=== PATIENT | female | born 1945 | race Caucasian/White ===

== ENCOUNTER 2019-05-08 08:34 | Emergency (ER) | payer MEDICARE, SELFPAY ==
--- NOTE | ~2019-05-08 | CT_ITS ---
EXAMINATION: CT BRAIN W/O DATE: 05/08/2019 10:27 INDICATION: Acute headache. TECHNIQUE: Computed tomography (CT) of the head was performed without intravenous contrast. The dose- length product was 605.33 mGy-cm. The mA was adjusted according to patient size. Iterative reconstruc tion technique was employed. COMPARISON: CT dated 06/04/2018 FINDINGS: Normal brain parenchymal volume for age. Normal garner-white differentiation. No acute intrac ranial hemorrhage, infarction, mass or mass effect. No ventriculomegaly or midline shift. Midline sagittal images demonstrate a normal corpus callosum, c raniovertebral junction and sella turcica. Basilar cisterns are patent. Paranasal sinuses and mastoids are pneumatized. No depressed skull fractures. IMPRESSION: 1. No acute intracranial abnormality. Reviewed, dictated and finalized at location A. ENT TURNER
--- NOTE | ~2019-05-08 | CT_ITS ---
EXAMINATION: CT abdomen pelvis w con DATE: 05/08/2019 10:27 INDICATION: Left lower abdominal pain. TECHNIQUE: Computed tomography (CT) of the abdomen and pelvis was performed with 100 cc Omnipaque 350 intravenous contrast. The dose-length product was 331.76 mGy-cm. Automated exposure control and iter ative reconstruction technique were employed. COMPARISON: CT dated 01/18/2019 FINDINGS: Lung bases unremarkable. Heart size normal. No significant pleural or pericardial effusion. Moderate atherosclerosis without evidence for aneurysm. The liver, spleen, pancreas, adrenal glands and right kidney are unremarkable. Gallbladder is present . Nonobstructive bowel gas pattern. Status post left nephrectomy. No abnormal masses in the nephrecto my bed. No abnormal pelvic masses or fluid collections. Tiny subcentimeter hypodensity right kidney, most likely benign cysts. No free air or free fluid. Mild lumbar spondylosis. There is mild bladder w all thickening. IMPRESSION: 1. No acute abdominal abnormality. 2: Status post left nephrectomy. 3: Mild bladder wall thickening. Consider cystitis in the appropriate clinical setting. Reviewed, dictated and finalized at location A. IFIED MASTER SAFECRACKER
[2019-05-08 08:40] VITALS: BP 191/66; PULSE 88; RESP 16; TEMP 36.4; O2SAT 100
--- NOTE | 2019-05-08 08:52 | ED.HA ---
HPI - Headache General Chief Complaint: Headache Stated Complaint: Head pain Time Seen by Provider: 05/08/19 08:50 Source: patient Mode of arrival: ambulatory Limitations: no limitations History of Present Illness HPI Narrative: The pt is a 74 y/o female who presents to the ED with c/o a ESCALERA that began yesterday. The pt states that her ESCALERA is located across the top of her head. She has not taken anything for the pain, which is intermittent and lasts a couple of hours. She relates her ESCALERA to a higher BP than nml, but states that her BP at home had a systolic reading of 164. The pt notes that she is supposed to be taking medication for HTN twice a day but missed her second dose yesterday. The pt reports lt ABD pain that began this morning and is present on palpation, but denies vision changes, dysuria, nausea, vomiting, or CP. She notes that her last bowel movement was yesterday and that it was nml. The pt has a PMHx of HTN, HLD, kidney CA, and bladder CA, as well as a SHx of a lt nephrectomy s/p kidney CA. MD elicited complaint: headache Onset (ago): day(s) (yesterday) Location: other (across top of head) Quality & Timing: intermittent Associated symptoms: other (lt ABD pain) Related Data Home Medications Medication Instructions Recorded Confirmed escitalopram oxalate mg 05/08/19 ezetimibe mg 05/08/19 fluticasone propionate INTRANASAL 05/08/19 losartan 05/08/19 omeprazole 05/08/19 Allergies Allergy/AdvReac Type Severity Reaction Status Date / Time azithromycin Allergy Unknown Unknown Verified 05/08/19 08:44 codeine Allergy Unknown Unknown Verified 05/08/19 08:44 hydrocodone AdvReac Severe CONFUSION Verified 05/08/19 08:44 baclofen AdvReac Unknown CONFUSION Verified 05/08/19 08:44 lisinopril AdvReac Unknown X Verified 05/08/19 08:44 simvastatin AdvReac Unknown X Verified 05/08/19 08:44 AMLODIPINE BESYLATE AdvReac Unknown UNKNOWN TO Uncoded 08/23/18 13:23 PATIENT Review of Systems Review of Systems: All systems reviewed & are unremarkable except as noted in HPI and below Eyes: Eyes: Denies change in vision Cardiovascular: Cardiovascular: Denies chest pain Gastrointestinal: Gastrointestinal: Reports abdominal pain (lt), Denies nausea and Denies vomiting Genitourinary: Genitourinary: Denies dysuria Neurologic: Reports headache(s) PMFSH Past Medical History Medical History Arthritis Neck and spine Bladder cancer CAD (coronary artery disease) lt carotid Cancer of kidney Carpal tunnel syndrome Bilateral wrist Cataract Diverticulitis Endometriosis Esophageal stricture GERD (gastroesophageal reflux disease) Hepatitis 8 y/o Hip fracture lt History of kidney cancer lt side History of pneumonia as a child HLD (hyperlipidemia) HTN (hypertension) IBS (irritable bowel syndrome) Migraines Osteopenia Pneumonia Situational depression UTI (urinary tract infection) Surgical History Surgical History H/O oophorectomy History of adenoidectomy 5 y/o History of appendectomy History of bladder surgery 1970 History of carpal tunnel surgery Bilateral History of hysterectomy History of nephrectomy lt side History of tonsillectomy 5 y/o Family History Family History Sibling Patient's sister is in good health Patient's brother is in good health Father Cerebrovascular accident Mother Family history of congestive heart failure Other Carcinoma of colon Diabetes mellitus Family history of heart disease in male family member before age 55 Social History Social History Smoking end date: 03/16/79 Alcohol intake: never Gender identity (if verbalized by the patient): Female Exam Narrative: Exam Narrative: GENERAL: Well-appearing, well-nourished, and in no acute d
[2019-05-08 09:15] VITALS: BP 152/68; PULSE 66; RESP 18; O2SAT 100
[2019-05-08 09:34] LABS: Basophils Percent Auto 0.7 % (0.2-1.2); Eosinophils Absolute Auto 0.2 K/mm3 (0-0.3); Eosinophils Percent Auto 3.4 % (0-4.4); Hematocrit 34.9 % (37.0-47.0); Hemoglobin 10.9 g/dL (12.0-15.0); Immature Granulocyte Absolute 0.02 K/mm3 (0.00-0.031); Immature Granulocyte Percent A 0.4 % (0-0.5); Lymphocytes Absolute Auto 1.17 K/mm3 (0.9-3.2); Lymphocytes Percent Auto 20.9 % (18.3-44.2); Mean Corpuscular HGB Conc 31.2 g/dl (32-36); Mean Corpuscular Hemoglobin 30.4 pg (26-34); Mean Corpuscular Volume 97.5 fl (80-100); Mean Platelet Volume 9.8 fl (7.4-10.4); Monocytes Absolute Auto 0.6 K/mm3 (0.1-0.6); Monocytes Percent Auto 11.3 % (2.6-8.5); Neutrophils Absolute Auto 3.6 K/mm3 (1.3-6.7); Neutrophils Percent Auto 63.3 % (45.5-73.1); Platelet Count Result 262 k/mm3 (150-375); Red Blood Count 3.58 M/mm3 (4.2-5.4); Red Cell Distribution Width 13.5 % (11.5-14.5); White Blood Count 5.6 K/mm3 (4.5-10.0)
[2019-05-08 09:40] LABS: Add Urine Microscopic? YES; Appearance Urine Clear (Clear); Bilirubin Urine Negative (Negative); Blood Urine 1+ (Negative); Color Urine Straw (Yellow); Glucose Urine UA Negative (Negative); Ketones Urine Negative (Negative); Leukocyte Esterase Ur Negative LEU/UL (Negative); Mucus Urine Rare /lpf; Nitrate Urine Negative (Negative); Protein Urine Negative (Negative); Specific Grav Ur 1.013 (1.001-1.035); Urobilinogen Urine Negative mg/dL (<2.0); WBC Urine 0-3 /hpf
[2019-05-08 09:44] LABS: Alanine Aminotransferase 13 U/L (4-35); Albumin Level 4.3 g/dL (3.5-5.1); Alkaline Phosphatase 75 U/L (38-126); Aspartate Amino Transferase 24 U/L (14-36); Bilirubin,Total 0.3 mg/dL (0.2-1.3); Blood Urea Nitrogen 17 mg/dL (7-17); Calcium 8.8 mg/dL (8.4-10.2); Carbon Dioxide 27 mmol/L (22-30); Chloride 97 mmol/L (98-107); Estimated CRCL calculation 31 ml/min; Estimated Glomerular Filt Rate 48; Glucose 91 mg/dL (65-105); Lipase 74 U/L (23-300); Potassium 3.9 mmol/L (3.4-5.0); Sodium 138 mmol/L (137-145)
[2019-05-08 10:00] VITALS: BP 137/65; PULSE 58; RESP 16; O2SAT 100
[2019-05-08 11:00] VITALS: BP 136/60; PULSE 59; RESP 16; O2SAT 100
[2019-05-08 11:47] VITALS: BP 124/61; PULSE 71; RESP 16; O2SAT 98
== END 2019-05-08 11:50 | disposition home or self-care (01) ==
PROVIDERS: Emergency Provider General Practice; PCP Physician Assistant
DX: G44.209 Tension-type headache, unspecified, not intractable (principal); R10.32 Left lower quadrant pain; I10 Essential (primary) hypertension; E78.5 Hyperlipidemia, unspecified; Z90.5 Acquired absence of kidney; Z85.528 Personal history of other malignant neoplasm of kidney; Z85.51 Personal history of malignant neoplasm of bladder; I25.10 Atherosclerotic heart disease of native coronary artery without angina pectoris; K21.9 Gastro-esophageal reflux disease without esophagitis; M85.80 Other specified disorders of bone density and structure, unspecified site; Z87.440 Personal history of urinary (tract) infections
CPT/HCPCS: 36415; 70450; 74177; 80053; 81001; 83690; 85025; 96365; 99284; J0131; Q9967

== ENCOUNTER 2019-09-09 08:45 | Outpatient (CLI) | payer MEDICARE, SELFPAY ==
--- NOTE | ~2019-09-09 | MM_ITS ---
EXAMINATION: MM screening azeem BI w conor HISTORY: Screening mammogram TECHNIQUE: Craniocaudal and mediolateral oblique 3-D tomosynthesis images were obtained and synthetic 2-D images were generated. CAD analysis was submitted and interpreted. COMPARISON: 09/01/2018, 08/28/2017, 08/26/2016 and lateral digital screening mammogram examinations BREAST PARENCHYMAL COMPOSITION: The breasts are heterogeneously dense, which may obscure small masses . FINDINGS: There is no evidence of suspicious mass, calcification, or architectural distortion to sugg est malignancy in either breast. There has been no suspicious interval change. IMPRESSION: 1. No mammographic evidence of malignancy. 2. Recommend routine screening mammography in one year. BI-RADS Category 1: Negative Reviewed, dictated and finalized at location A.
== END 2019-09-09 08:46 | disposition home or self-care (01) ==
LOC: ANHIMG 08:52
PROVIDERS: PCP Physician Assistant; Visit Provider Physician Assistant
DX: Z12.31 Encounter for screening mammogram for malignant neoplasm of breast (principal)
CPT/HCPCS: 77063; 77067

== ENCOUNTER 2019-10-05 11:03 | Outpatient (CLI) | payer MEDICARE, SELFPAY ==
--- NOTE | ~2019-10-05 | DEXA_ITS ---
Bone Density Report Name: Bina Bowling Age: 74 Sex: Female Ethnicity: White Date of : 1945 Indication: osteopenia; monitoring treatment; parental hip fracture; height loss; prior fracture; cancer; poatmenopausal Referring Provider: AdamaLayla Study: Bone densitometry was performed. Exam Date: October 05, 2019 Accession number: [id number] Bone Density: Region BMD T-score Z-score Classification AP Spine (L1, L2, L3) 0.836 -1.7 0.8 Osteopenia Femoral Neck (Left) 0.584 -2.4 -0.2 Osteopenia Total Hip (Left) 0.745 -1.6 0.3 Osteopenia Total Hip Bilateral Avg 0.743 -1.7 0.3 Osteopenia Femoral Neck (Right) 0.542 -2.8 -0.6 Osteoporosis Total Hip (Right) 0.740 -1.7 0.2 Osteopenia World Health Organization criteria for BMD impression classify patients as: Normal (T-score at or above -1.0), Osteopenia (T-score between -1.0 and -2.5), or Osteoporosis (T-score at or below -2.5). 10-year Fracture Risk: FRAX not reported because: Some T-score for Spine Total or Hip Total or Femoral Neck at or below -2.5 Treated for osteoporosis Previous Exams: Region Exam Age BMD T-score BMD Change BMD Change Date g/cm2 vs Baseline vs Previous AP Spine(L1, L2, L3) 10/05/2019 74 0.836 -1.7 0.030(3.7%)# 0.015(1.9%)# 08/29/2013 68 0.821 -1.8 0.014(1.8%)# 0.018(2.2%) 05/01/2011 66 0.803 -2.0 -0.004(-0.4%)# -0.004(-0.4%)# 09/18/2009 64 0.807 -1.9 Total Hip(Left) 10/05/2019 74 0.745 -1.6 -0.046(-5.8%)# -0.035(-4.5%)# 08/29/2013 68 0.780 -1.3 -0.010(-1.3%)# 0.007(0.8%) 05/01/2011 66 0.774 -1.4 -0.017(-2.1%)# -0.017(-2.1%)# 09/18/2009 64 0.791 -1.2 Total Hip(Right) 10/05/2019 74 0.740 -1.7 -0.054(-6.8%)# -0.040(-5.1%)# 08/29/2013 68 0.780 -1.3 -0.014(-1.8%)# -0.011(-1.4%) 05/01/2011 66 0.792 -1.2 -0.003(-0.4%)# -0.003(-0.4%)# 09/18/2009 64 0.795 -1.2 *Denotes significance at 95% confidence level, LSC for AP Spine = 0.022 g/cm2, LSC for Total Hip = 0.027 g/cm2 Clinical Information Provided by Patient: Has had a low trauma fracture Parent has had a hip fracture Is being treated for osteoporosis Has used the following medications: Fosamax (i.e. alendronate), Reclast (i.e. zoledronate), Vitamin D, Calcium Has the following medical conditions: Cancer Patient maximum height was 63 Menopause Age: 58 Drinks caffeinated beverages Onset of menses at age 8 Number of children 3 Impression: The patient h
== END 2019-10-05 11:04 | disposition home or self-care (01) ==
LOC: ANHIMG 11:04
PROVIDERS: PCP Physician Assistant; Visit Provider Internal Medicine Endocrinology, Diabetes & Metabolism
DX: M85.89 Other specified disorders of bone density and structure, multiple sites (principal)
CPT/HCPCS: 77080

== ENCOUNTER 2020-02-13 09:46 | Outpatient (CLI) | payer MEDICARE, SELFPAY ==
--- NOTE | ~2020-02-13 | US_ITS ---
EXAMINATION: US soft tissue head and neck EXAM DATE: 02/13/2020 10:17 INDICATION: Enlarged lymph nodes, dysphagia. TECHNIQUE: Multiple grayscale and Doppler images of the symptomatic anterior neck area of pressure we re obtained (by a technologist who performed the scan) and subsequently reviewed. Correlation is made to thyroid ultrasound 02/23/2019. FINDINGS: Thyroid gland is unremarkable. There is no mid cervical internal jugular chain lymphadenopathy or mas s. Subcutaneous fat is unremarkable. IMPRESSION: 1. Unremarkable neck ultrasound exam. Reviewed, dictated and finalized at location A. ENSATION ADVISOR
== END 2020-02-13 09:47 | disposition home or self-care (01) ==
PROVIDERS: PCP Physician Assistant; Visit Provider Physician Assistant
DX: R59.0 Localized enlarged lymph nodes (principal)
CPT/HCPCS: 76536

== ENCOUNTER 2020-07-16 11:54 | Emergency (ER) | payer MEDICARE, SELFPAY ==
--- NOTE | ~2020-07-16 | XR_ITS ---
EXAMINATION: XR chest 1V portable EXAM DATE: 07/16/2020 12:51 INDICATION: Altered mental status, shooting pain across head, confusion. TECHNIQUE: Portable AP frontal chest x-ray was obtained. Comparison is made to prior examination from 03/31/19. FINDINGS: The lungs are hyperinflated which can be seen with chronic obstructive pulmonary disease (a clinical diagnosis of functional impairment), but is not diagnostic of it. The lungs are clear. T here are no pleural effusions. The cardiomediastinal silhouette is within normal limits. There is n o pneumothorax suspected. The bones and soft tissues are unremarkable. IMPRESSION: 1. No acute cardiopulmonary findings. 2. Hyperinflation. Reviewed, dictated and finalized at location B.
--- NOTE | 2020-07-16 11:56 | ECG_ITS ---
Measurements Intervals [place] Rate: 72 P: 55 WI: 153 QRS: 50 QRSD: 82 T: 72 QT: 366 QTc: 402 Interpretive Statements SINUS RHYTHM DELAYED PRECORDIAL R/S TRANSITION BORDERLINE ECG Electronically Signed On 07-16-2020 14:32:34 CDT by Villa Lee D.O.
[2020-07-16 12:03] VITALS: BP 145/68; PULSE 75; RESP 20; TEMP 37.1; O2SAT 99
[2020-07-16 12:29] LABS: Basophils Percent Auto 0.4 % (0.2-1.2); Eosinophils Absolute Auto 0.2 K/mm3 (0-0.3); Hematocrit 32.8 % (37.0-47.0); Hemoglobin 10.6 g/dL (12.0-15.0); Immature Granulocyte Absolute 0.02 K/mm3 (0.00-0.031); Immature Granulocyte Percent A 0.3 % (0-0.5); Lymphocytes Absolute Auto 1.63 K/mm3 (0.9-3.2); Lymphocytes Percent Auto 24.2 % (18.3-44.2); Mean Corpuscular HGB Conc 32.3 g/dl (32-36); Mean Corpuscular Hemoglobin 31.5 pg (26-34); Mean Corpuscular Volume 97.3 fl (80-100); Mean Platelet Volume 9.3 fl (7.4-10.4); Monocytes Absolute Auto 0.9 K/mm3 (0.1-0.6); Monocytes Percent Auto 13.4 % (2.6-8.5); Neutrophils Percent Auto 58.7 % (45.5-73.1); Platelet Count Result 257 k/mm3 (150-375); Red Blood Count 3.37 M/mm3 (4.2-5.4); Red Cell Distribution Width 12.9 % (11.5-14.5); White Blood Count 6.7 K/mm3 (4.5-10.0)
[2020-07-16 12:31] LABS: Add Urine Microscopic? NO; Appearance Urine Clear (Clear); Bilirubin Urine Negative (Negative); Blood Urine Negative (Negative); Color Urine Colorless (Yellow); Glucose Urine UA Negative (Negative); Ketones Urine Negative (Negative); Leukocyte Esterase Ur Negative LEU/UL (Negative); Nitrate Urine Negative (Negative); Protein Urine Negative (Negative); Specific Grav Ur 1.006 (1.001-1.035); Urobilinogen Urine Negative mg/dL (<2.0)
[2020-07-16 12:40] LABS: Anion Gap 4 mmol/L (8-16); Blood Urea Nitrogen 25 mg/dL (7-17); Carbon Dioxide 31 mmol/L (22-30); Chloride 98 mmol/L (98-107); Estimated CRCL calculation 29 ml/min; Estimated Glomerular Filt Rate 48; Glucose 112 mg/dL (65-105); Potassium 4.1 mmol/L (3.4-5.0); Sodium 133 mmol/L (137-145)
[2020-07-16 12:41] LABS: Prothrombin Time 13.3 Seconds (11.1-14.7)
[2020-07-16 12:42] LABS: Partial Thromboplastin Time 28.1 SECONDS (22.3-36.8)
[2020-07-16 12:49] VITALS: BP 130/64; PULSE 79; RESP 20; O2SAT 98
[2020-07-16] MEDS: ACETAMINOPHEN 500 MG TABLET 1000 MG PO (12:49)
[2020-07-16 12:52] LABS: Troponin I < 0.012 ng/mL (0.000-0.034)
--- NOTE | 2020-07-16 13:51 | ED.GENADULT ---
HPI - General Adult General Chief complaint: Neuro Symptoms/Deficit Stated complaint: headache, neck, right leg pain, bad memory Time Seen by Provider: 07/16/20 11:57 History of Present Illness HPI narrative: Patient is a 75-year-old female who presents ER with multiple complaints. Main concern is that she was riding on some cards and cannot remember her daughter's last name and had to look it up. She denies any slurred speech or focal weakness/numbness. No additional episodes of confusion other than the one. She reports she has been having some mild headache related to this and has had some paraspinal muscular neck pain that is worse with turning her head. No fevers or chills or sweats. No trauma. No history of CVA but she does report that she has atherosclerosis in her blood vessels. Patient also reports an episode of brief achiness in the right lower extremity that has since resolved. Related Data Home Medications Medication Instructions Recorded Confirmed escitalopram oxalate 10 mg PO DAILY 05/08/19 07/16/20 ezetimibe 10 mg PO DAILY 05/08/19 07/16/20 losartan 50 mg PO HS 05/08/19 07/16/20 aspirin [Aspir-81] 81 mg PO DAILY 07/16/20 07/16/20 Allergies Allergy/AdvReac Type Severity Reaction Status Date / Time azithromycin Allergy Unknown Unknown Verified 07/16/20 12:07 codeine Allergy Unknown Unknown Verified 07/16/20 12:07 hydrocodone AdvReac Severe CONFUSION Verified 07/16/20 12:07 baclofen AdvReac Unknown CONFUSION Verified 07/16/20 12:07 lisinopril AdvReac Unknown X Verified 07/16/20 12:07 simvastatin AdvReac Unknown X Verified 07/16/20 12:07 AMLODIPINE BESYLATE AdvReac Unknown UNKNOWN TO Uncoded 07/16/20 12:07 PATIENT Review of Systems Review of Systems: All systems reviewed & are unremarkable except as noted in HPI and below Constitutional: Constitutional: Denies chills, Denies fever(s) and Denies weakness ENT: Denies nasal congestion and Denies sore throat Cardiovascular: Cardiovascular: Denies chest pain and Denies radiating jaw, neck or arm pain Respiratory: Respiratory: Denies cough and Denies dyspnea Gastrointestinal: Gastrointestinal: Denies abdominal pain, Denies nausea and Denies vomiting Musculoskeletal: Musculoskeletal: Reports muscle cramps Neurologic: Reports confusion, Denies syncope, Reports headache(s), Denies focal weakness and Denies numbness PMFSH Past Medical History Medical History (Updated 07/16/20 @ 16:19 by Aj Olmstead MD) Arthritis Neck and spine Bladder cancer CAD (coronary artery disease) lt carotid Cancer of kidney Carpal tunnel syndrome Bilateral wrist Cataract Diverticulitis Endometriosis Esophageal stricture GERD (gastroesophageal reflux disease) Hepatitis 8 y/o Hip fracture lt History of kidney cancer lt side History of pneumonia as a child HLD (hyperlipidemia) HTN (hypertension) IBS (irritable bowel syndrome) Migraines Osteopenia Pneumonia Situational depression UTI (urinary tract infection) Surgical History Surgical History H/O oophorectomy History of adenoidectomy 5 y/o History of appendectomy History of bladder surgery 1970 History of carpal tunnel surgery Bilateral History of hysterectomy History of nephrectomy lt side History of tonsillectomy 5 y/o Family History Family History Sibling Patient's sister is in good health Patient's brother is in good health Father Cerebrovascular accident Mother Family history of congestive heart failure Other Carcinoma of colon Diabetes mellitus Family history of heart disease in male family member before age 55 Social History Social History Smoking end date: 03/16/79 Alcohol intake: never Gender identity (if verbalized by the patient): Female Exam Narrative: Exam Narrative: GENERAL: Well-a
[2020-07-16] MEDS: SODIUM CHLORIDE 0.9% IV 1,000 ML 999 ML IV CONT (14:51)
[2020-07-16 16:19] VITALS: BP 137/67; PULSE 68; RESP 16; TEMP 36.6; O2SAT 100
== END 2020-07-16 16:23 | disposition home or self-care (01) ==
PROVIDERS: Emergency Provider Emergency Medicine; PCP Physician Assistant
DX: M54.2 Cervicalgia (principal); E86.0 Dehydration; R41.0 Disorientation, unspecified; M19.90 Unspecified osteoarthritis, unspecified site; Z85.51 Personal history of malignant neoplasm of bladder; I25.10 Atherosclerotic heart disease of native coronary artery without angina pectoris; Z85.528 Personal history of other malignant neoplasm of kidney; H26.9 Unspecified cataract; K21.9 Gastro-esophageal reflux disease without esophagitis; E78.5 Hyperlipidemia, unspecified; I10 Essential (primary) hypertension; M85.80 Other specified disorders of bone density and structure, unspecified site; I70.90 Unspecified atherosclerosis; M79.604 Pain in right leg; Z87.440 Personal history of urinary (tract) infections; Z79.82 Long term (current) use of aspirin; R94.31 Abnormal electrocardiogram [ECG] [EKG]
CPT/HCPCS: 36415; 71045; 80048; 81003; 84484; 85025; 85610; 85730; 93005; 96360; 99284; A9270; J7030

== ENCOUNTER 2020-08-16 18:13 | Emergency (ER) | payer MEDICARE, SELFPAY ==
--- NOTE | ~2020-08-16 | CT_ITS ---
EXAMINATION: CT brain wo con DATE: 08/16/2020 22:17 INDICATION: Headache. Left temporal area pain radiating to neck TECHNIQUE: Computed tomography (CT) of the head was performed without intravenous contrast. The mA wa s adjusted according to patient size. Iterative reconstruction technique was employed. Exam dose: 60 5.33 mGy-cm total exam DLP. COMPARISON: May 08, 2019 CT noncontrast brain FINDINGS: No intracranial mass lesion or hemorrhage or cerebrovascular accident. No midline shift or mass effect effect. There is cerebral cortical volume loss preferentially involving the frontal and temporal lobes. Bilateral carotid siphon internal carotid artery calcifications. There is nonspecific diminished atte nuation cerebral white matter, likely due to chronic small vessel ischemic changes. No subdural or epidural hematoma. No fracture or bone destruction of the cranial vault. IMPRESSION: No acute intracranial finding Cerebral atherosclerosis and chronic small vessel ischemic changes of the cerebral white matter Reviewed, dictated and finalized at Location A. Reviewed, dictated and finalized at location A. IMPRESSION: No acute intracranial finding Cerebral atherosclerosis and chronic small vessel ischemic changes of the cereb ral white matter
[2020-08-16 18:49] VITALS: BP 168/83; PULSE 73; RESP 20; TEMP 36.2; O2SAT 98
[2020-08-16 21:02] VITALS: BP 180/82; PULSE 69; RESP 16; O2SAT 100
--- NOTE | 2020-08-16 21:40 | PC.NURSE ---
Pt presents to ED with complaints of headache that has been persistent for the past 2 days. Pt states pain noted to bilateral neck and radiates up to left side of head. Pt states pain is rated 3/10 and denies treating pain captain assistant. Pt states she takes losartan for BP and has not taken meds due to being present in ED. Denies any injury or trauma. States she picked up a small bottle of laundry detergent and states that is the only thing she can think of that may have caused her to have pain. Pt resting on cart in its lowest position with call button and personal items within reach. Advised to press call button for assistance.
[2020-08-16] MEDS: CYCLOBENZAPRINE HCL 10 MG TABLET PO (22:28)
--- NOTE | 2020-08-16 22:30 | PC.NURSE ---
Pt resting on cart in its lowest position with call button and personal items within reach. No complaints or concerns voiced. Lights dimmed for comfort.
[2020-08-16] MEDS: KETOROLAC 30 MG/ML VIAL (*BKC) 15 MG IV PUSH (22:31)
[2020-08-16] MEDS: diphenhydrAMINE HCl INJ 50 MG/ML VIAL 25 MG IV PUSH (22:33)
[2020-08-16] MEDS: METOCLOPRAMIDE HCL INJ 10 MG/2 ML VIAL IV PUSH (22:33)
--- NOTE | 2020-08-16 22:38 | ED.GENADULT ---
HPI - General Adult General Chief complaint: Headache Stated complaint: High Blood Pressure, Head Pain Time Seen by Provider: 08/16/20 21:55 History of Present Illness HPI narrative: Patient 75-year-old female that presents the emergency department with chief complaint of headache and neck pain. The patient states she lifted a bottle of laundry detergent and subsequently has had pain in the left side of her neck and also has had pain in the left temporal area. Patient states the pain is aching reports that is not improved by anything reports that it is worsened whenever she moves denies any weakness in her arms or legs denies focal neurological deficit. Related Data Home Medications Medication Instructions Recorded Confirmed escitalopram oxalate 10 mg PO DAILY 05/08/19 07/16/20 ezetimibe 10 mg PO DAILY 05/08/19 07/16/20 losartan 50 mg PO HS 05/08/19 07/16/20 aspirin [Aspir-81] 81 mg PO DAILY 07/16/20 07/16/20 Allergies Allergy/AdvReac Type Severity Reaction Status Date / Time azithromycin Allergy Unknown Unknown Verified 07/16/20 12:07 codeine Allergy Unknown Unknown Verified 07/16/20 12:07 hydrocodone AdvReac Severe CONFUSION Verified 07/16/20 12:07 baclofen AdvReac Unknown CONFUSION Verified 07/16/20 12:07 lisinopril AdvReac Unknown X Verified 07/16/20 12:07 simvastatin AdvReac Unknown X Verified 07/16/20 12:07 AMLODIPINE BESYLATE AdvReac Unknown UNKNOWN TO Uncoded 07/16/20 12:07 PATIENT Review of Systems Review of Systems: Narrative: A 10 system review of systems was completed on the patient and is negative except for what is stated in the HPI. Nursing and ancillary documentation was reviewed. [facility] Past Medical History Medical History (Updated 08/16/20 @ 23:49 by Vinod Dumont MD) Arthritis Neck and spine Bladder cancer CAD (coronary artery disease) lt carotid Cancer of kidney Carpal tunnel syndrome Bilateral wrist Cataract Diverticulitis Endometriosis Esophageal stricture GERD (gastroesophageal reflux disease) Hepatitis 8 y/o Hip fracture lt History of kidney cancer lt side History of pneumonia as a child HLD (hyperlipidemia) HTN (hypertension) IBS (irritable bowel syndrome) Migraines Osteopenia Pneumonia Situational depression UTI (urinary tract infection) Surgical History Surgical History H/O oophorectomy History of adenoidectomy 5 y/o History of appendectomy History of bladder surgery 1970 History of carpal tunnel surgery Bilateral History of hysterectomy History of nephrectomy lt side History of tonsillectomy 5 y/o Family History Family History Sibling Patient's sister is in good health Patient's brother is in good health Father Cerebrovascular accident Mother Family history of congestive heart failure Other Carcinoma of colon Diabetes mellitus Family history of heart disease in male family member before age 55 Social History Social History Smoking end date: 03/16/79 Alcohol intake: never Gender identity (if verbalized by the patient): Female Exam Narrative: Exam Narrative: GENERAL: Well-appearing, well-nourished, and in no acute distress. HEAD: Normocephalic, atraumatic. EYES: PERRLA and EOMI. ENT: Nares clear, no rhinorrhea or epistaxis. Mucous membranes moist. NECK: Supple. There is tenderness to palpation in the left paraspinous muscle CHEST: Clear to auscultation. No respiratory distress. HEART: Regular rate and rhythm. No murmur heard. Normal peripheral pulses. ABDOMEN: Soft, nontender, nondistended, normal active bowel sounds. EXTREMITIES: Normal range of motion. No edema. SKIN: Warm, dry, no rash. NEURO: No focal deficits. Alert and oriented x3. PSYCH: Normal mood and affect. Course Course Emergency Course: Patient is feeling
[2020-08-16 22:40] LABS: Basophils Absolute Auto 0.1 K/mm3 (0.0-0.1); Basophils Percent Auto 0.8 % (0.2-1.2); Eosinophils Absolute Auto 0.3 K/mm3 (0-0.3); Eosinophils Percent Auto 3.5 % (0-4.4); Hematocrit 34.7 % (37.0-47.0); Hemoglobin 11.2 g/dL (12.0-15.0); Immature Granulocyte Absolute 0.02 K/mm3 (0.00-0.031); Immature Granulocyte Percent A 0.3 % (0-0.5); Lymphocytes Absolute Auto 2.36 K/mm3 (0.9-3.2); Lymphocytes Percent Auto 30.8 % (18.3-44.2); Mean Corpuscular HGB Conc 32.3 g/dl (32-36); Mean Corpuscular Hemoglobin 31.4 pg (26-34); Mean Corpuscular Volume 97.2 fl (80-100); Mean Platelet Volume 9.1 fl (7.4-10.4); Monocytes Percent Auto 13.5 % (2.6-8.5); Neutrophils Absolute Auto 3.9 K/mm3 (1.3-6.7); Neutrophils Percent Auto 51.1 % (45.5-73.1); Platelet Count Result 277 k/mm3 (150-375); Red Blood Count 3.57 M/mm3 (4.2-5.4); Red Cell Distribution Width 12.9 % (11.5-14.5); White Blood Count 7.7 K/mm3 (4.5-10.0)
[2020-08-16 22:43] LABS: Add Urine Microscopic? NO; Appearance Urine Clear (Clear); Bilirubin Urine Negative (Negative); Blood Urine Negative (Negative); Color Urine Colorless (Yellow); Glucose Urine UA Negative (Negative); Ketones Urine Negative (Negative); Leukocyte Esterase Ur Negative LEU/UL (Negative); Nitrate Urine Negative (Negative); Protein Urine Negative (Negative); Specific Grav Ur 1.006 (1.001-1.035); Urobilinogen Urine Negative mg/dL (<2.0)
[2020-08-16 22:52] LABS: Alanine Aminotransferase 13 U/L (4-35); Albumin Level 4.3 g/dL (3.5-5.1); Alkaline Phosphatase 72 U/L (38-126); Anion Gap 10 mmol/L (8-16); Aspartate Amino Transferase 25 U/L (14-36); Bilirubin,Total 0.2 mg/dL (0.2-1.3); Blood Urea Nitrogen 21 mg/dL (7-17); Calcium 9.7 mg/dL (8.4-10.2); Carbon Dioxide 26 mmol/L (22-30); Chloride 102 mmol/L (98-107); Estimated CRCL calculation 29 ml/min; Estimated Glomerular Filt Rate 48; Glucose 97 mg/dL (65-105); Potassium 4.6 mmol/L (3.4-5.0); Sodium 138 mmol/L (137-145)
--- NOTE | 2020-08-16 23:13 | PC.NURSE ---
pt resting on cart and denies all pain and discomfort. States headache has completely subsided.
[2020-08-16 23:39] VITALS: BP 118/75; PULSE 62; RESP 19; O2SAT 96
[2020-08-17 00:22] VITALS: BP 130/61; PULSE 82; RESP 18; O2SAT 99
[2020-08-17 00:24] VITALS: BP 130/61; PULSE 82; RESP 18; O2SAT 99
== END 2020-08-17 00:25 | disposition home or self-care (01) ==
PROVIDERS: Emergency Provider Emergency Medicine; PCP Physician Assistant
DX: R51.9 Headache, unspecified (principal); I25.10 Atherosclerotic heart disease of native coronary artery without angina pectoris; E78.5 Hyperlipidemia, unspecified; I10 Essential (primary) hypertension; M85.80 Other specified disorders of bone density and structure, unspecified site; K21.9 Gastro-esophageal reflux disease without esophagitis; Z85.528 Personal history of other malignant neoplasm of kidney; Z85.51 Personal history of malignant neoplasm of bladder; Z87.440 Personal history of urinary (tract) infections; Z79.82 Long term (current) use of aspirin; F43.21 Adjustment disorder with depressed mood; Z90.5 Acquired absence of kidney
CPT/HCPCS: 36415; 70450; 80053; 81003; 85025; 96374; 96375; 99284; A9270; J1200; J1885; J2765

== ENCOUNTER 2020-09-17 10:30 | Emergency (ER) | payer MEDICARE, SELFPAY ==
--- NOTE | ~2020-09-17 | CT_ITS ---
EXAMINATION: CT abdomen pelvis w con INDICATION: Right lower quadrant pain TECHNIQUE: Computed tomographic images of the abdomen and pelvis were obtained after the administrati on of 100 cc of Omnipaque 350 intravenous contrast. The dose-length product (DLP) was 241.95 mGy-cm. Automated exposure control and iterative reconstruction technique were employed. COMPARISON: 05/08/2019 FINDINGS: Minimal dependent atelectasis is present in the lung bases. The heart size is normal. There is focal steatosis. The liver adjacent to the ligamentum teres. The spleen, pancreas, gallbladder, a nd right adrenal gland are normal. There are changes of left adrenalectomy and nephrectomy. The right kidney is unremarkable. There is calcified atherosclerosis of the aorta and many of the other arteri es. No pathologically enlarged abdominal or pelvic lymph nodes are identified. There is no free intra peritoneal gas or evidence of bowel obstruction. A moderate volume of colonic stool is present. The a ppendix is not definitely identified however no right lower quadrant inflammatory change is seen. The re is moderate lumbar spondylosis. IMPRESSION: 1. No CT correlate for the patient's symptoms. 2. Changes of left nephrectomy. 3. Constipation. Reviewed, dictated and finalized at location A.
[2020-09-17 10:43] VITALS: BP 189/84; PULSE 90; RESP 16; TEMP 36.7; O2SAT 100
[2020-09-17 11:07] LABS: Basophils Percent Auto 0.5 % (0.2-1.2); Eosinophils Absolute Auto 0.2 K/mm3 (0-0.3); Eosinophils Percent Auto 2.3 % (0-4.4); Hematocrit 35.2 % (37.0-47.0); Hemoglobin 11.3 g/dL (12.0-15.0); Immature Granulocyte Absolute 0.02 K/mm3 (0.00-0.031); Immature Granulocyte Percent A 0.3 % (0-0.5); Lymphocytes Absolute Auto 1.83 K/mm3 (0.9-3.2); Lymphocytes Percent Auto 23.6 % (18.3-44.2); Mean Corpuscular HGB Conc 32.1 g/dl (32-36); Mean Corpuscular Hemoglobin 30.8 pg (26-34); Mean Corpuscular Volume 95.9 fl (80-100); Mean Platelet Volume 9.2 fl (7.4-10.4); Monocytes Absolute Auto 0.9 K/mm3 (0.1-0.6); Monocytes Percent Auto 11.8 % (2.6-8.5); Neutrophils Absolute Auto 4.8 K/mm3 (1.3-6.7); Neutrophils Percent Auto 61.5 % (45.5-73.1); Platelet Count Result 284 k/mm3 (150-375); Red Blood Count 3.67 M/mm3 (4.2-5.4); White Blood Count 7.7 K/mm3 (4.5-10.0)
[2020-09-17 11:09] LABS: Add Urine Microscopic? NO; Appearance Urine Clear (Clear); Bilirubin Urine Negative (Negative); Blood Urine Negative (Negative); Color Urine Straw (Yellow); Glucose Urine UA Negative (Negative); Ketones Urine Negative (Negative); Leukocyte Esterase Ur Negative LEU/UL (Negative); Nitrate Urine Negative (Negative); Protein Urine Negative (Negative); Specific Grav Ur 1.006 (1.001-1.035); Urobilinogen Urine Negative mg/dL (<2.0)
[2020-09-17 11:15] LABS: Alanine Aminotransferase 15 U/L (4-35); Albumin Level 4.5 g/dL (3.5-5.1); Alkaline Phosphatase 80 U/L (38-126); Anion Gap 6 mmol/L (8-16); Aspartate Amino Transferase 35 U/L (14-36); Bilirubin,Total 0.4 mg/dL (0.2-1.3); Blood Urea Nitrogen 21 mg/dL (7-17); Calcium 9.7 mg/dL (8.4-10.2); Carbon Dioxide 29 mmol/L (22-30); Chloride 102 mmol/L (98-107); Estimated CRCL calculation 29 ml/min; Estimated Glomerular Filt Rate 48; Glucose 97 mg/dL (65-105); Lipase 91 U/L (23-300); Potassium 4.1 mmol/L (3.4-5.0); Sodium 137 mmol/L (137-145)
--- NOTE | 2020-09-17 12:45 | ED.GENADULT ---
HPI - General Adult General Chief complaint: Abdominal Pain Stated complaint: R Side Pain/Breast swelling Time Seen by Provider: 09/17/20 11:11 Source: patient History of Present Illness HPI narrative: Patient is a 75 y/o female complaining right lower abdominal pain for 1 month. She describes her pain as sharp and rates it as 4/10. There is no alleviating or exacerbating factor. She has no vomiting, diarrhea or dysuria. She saw Dr. Hung (Sustainable Systems Analyst) last week and US of pelvis was done and was reportedly negative per patient. She also has been having breast swelling for 3 months and has been evaluated by Dr. Hung. She states that she was referred back to PCP and possibly surgeon for her abdominal pain. Related Data Home Medications Medication Instructions Recorded Confirmed escitalopram oxalate 10 mg PO DAILY 05/08/19 07/16/20 ezetimibe 10 mg PO DAILY 05/08/19 07/16/20 losartan 50 mg PO HS 05/08/19 07/16/20 aspirin [Aspir-81] 81 mg PO DAILY 07/16/20 07/16/20 Allergies Allergy/AdvReac Type Severity Reaction Status Date / Time azithromycin Allergy Unknown Unknown Verified 09/17/20 10:47 codeine Allergy Unknown Unknown Verified 09/17/20 10:47 hydrocodone AdvReac Severe CONFUSION Verified 09/17/20 10:47 baclofen AdvReac Unknown CONFUSION Verified 09/17/20 10:47 lisinopril AdvReac Unknown X Verified 09/17/20 10:47 simvastatin AdvReac Unknown X Verified 09/17/20 10:47 AMLODIPINE BESYLATE AdvReac Unknown UNKNOWN TO Uncoded 07/16/20 12:07 PATIENT Review of Systems Constitutional: Constitutional: Denies chills, Denies fever(s), Denies headache(s) and Denies weakness Eyes: Eyes: Denies blurry vision ENT: Denies headache(s) and Denies neck pain Cardiovascular: Cardiovascular: Denies chest pain and Denies dyspnea Respiratory: Respiratory: Denies cough and Denies dyspnea Gastrointestinal: Gastrointestinal: Reports abdominal pain, Denies diarrhea, Denies nausea and Denies vomiting Genitourinary: Genitourinary: Denies hematuria and Denies dysuria Musculoskeletal: Musculoskeletal: Denies back pain and Denies neck pain Integumentary/Breasts: Skin/Breast: Reports other ( breast swelling ) Neurologic: Denies headache(s) and Denies weakness [facility] Past Medical History Medical History (Updated 09/17/20 @ 13:33 by Greta Burr MD) Arthritis Neck and spine Bladder cancer CAD (coronary artery disease) lt carotid Cancer of kidney Carpal tunnel syndrome Bilateral wrist Cataract Diverticulitis Endometriosis Esophageal stricture GERD (gastroesophageal reflux disease) Hepatitis 8 y/o Hip fracture lt History of kidney cancer lt side History of pneumonia as a child HLD (hyperlipidemia) HTN (hypertension) IBS (irritable bowel syndrome) Migraines Osteopenia Pneumonia Situational depression UTI (urinary tract infection) Surgical History Surgical History H/O oophorectomy History of adenoidectomy 5 y/o History of appendectomy History of bladder surgery 1970 History of carpal tunnel surgery Bilateral History of hysterectomy History of nephrectomy lt side History of tonsillectomy 5 y/o Family History Family History Sibling Patient's sister is in good health Patient's brother is in good health Father Cerebrovascular accident Mother Family history of congestive heart failure Other Carcinoma of colon Diabetes mellitus Family history of heart disease in male family member before age 55 Social History Social History Smoking end date: 03/16/79 Alcohol intake: never Gender identity (if verbalized by the patient): Female Exam Const: General: no acute distress and well developed Orientation/consciousness: oriented to person, oriented to place, oriented to time and patient oriented x3 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
== END 2020-09-17 13:55 | disposition home or self-care (01) ==
PROVIDERS: Emergency Medicine; Emergency Provider Emergency Medicine; PCP Physician Assistant
DX: R10.30 Lower abdominal pain, unspecified (principal); G89.29 Other chronic pain; N63.0 Unspecified lump in unspecified breast; I10 Essential (primary) hypertension; I25.10 Atherosclerotic heart disease of native coronary artery without angina pectoris; Z79.82 Long term (current) use of aspirin; Z85.528 Personal history of other malignant neoplasm of kidney
CPT/HCPCS: 36415; 74177; 80053; 81003; 83690; 85025; 99284; Q9967

== ENCOUNTER → 2020-11-03 01:37 | Outpatient (CLI) | payer MEDICARE, SELFPAY ==
[2020-11-04 01:36] LABS: SARS-CoV-2 RNA PCR Negative
== END ==
PROVIDERS: PCP Physician Assistant; Visit Provider Internal Medicine Gastroenterology
DX: Z01.812 Encounter for preprocedural laboratory examination (principal); Z20.822 Contact with and (suspected) exposure to COVID-19
CPT/HCPCS: C9803; U0003; U0005

== ENCOUNTER 2020-11-06 02:00 | Day surgery (SDC) | payer MEDICARE, SELFPAY ==
[2020-10-30 08:39] VITALS: BMI 23.3
--- NOTE | 2020-11-05 13:27 | WPDANESEPPF ---
Anes - Initial Pre Proc Eval Procedure: Operation Date: 11/06/20 11:00 Proposed Procedures p Colonoscopy - Chris Osborne MD Date/Time: 11/05/20 13:27 Surgeon: Chris Osborne MD Pre Op Diagnosis: change in bowel habits, constipation Patient Data Age: 75 Gender: F Height: 1.55 m Weight: 56 kg Allergies Allergy/AdvReac Type Severity Reaction Status Date / Time azithromycin Allergy Unknown Unknown Verified 11/06/20 10:09 codeine Allergy Unknown Unknown Verified 11/06/20 10:09 hydrocodone AdvReac Severe CONFUSION Verified 11/06/20 10:09 amlodipine AdvReac Unknown Unknown to Verified 11/06/20 10:09 patient baclofen AdvReac Unknown CONFUSION Verified 11/06/20 10:09 lisinopril AdvReac Unknown X Verified 11/06/20 10:09 simvastatin AdvReac Unknown X Verified 11/06/20 10:09 Home Medications Medication Instructions Recorded Confirmed Type escitalopram oxalate [Lexapro] 10 mg PO DAILY 05/08/19 11/06/20 History ezetimibe [Zetia] 10 mg PO DAILY 05/08/19 11/06/20 History losartan 50 mg PO HS 05/08/19 11/06/20 History aspirin [Aspir-81] 81 mg PO DAILY 07/16/20 11/06/20 History Patient hx anesthesia problems: none Family hx anesthesia problems: none PMFSH Past Medical History Medical History (Updated 11/06/20 @ 10:40 by Chris Osborne MD) Arthritis Neck and spine Bladder cancer CAD (coronary artery disease) lt carotid Cancer of kidney Carpal tunnel syndrome Bilateral wrist Cataract Constipation Diverticulitis Endometriosis Esophageal stricture GERD (gastroesophageal reflux disease) Hepatitis 8 y/o Hip fracture lt History of kidney cancer lt side History of pneumonia as a child HLD (hyperlipidemia) HTN (hypertension) IBS (irritable bowel syndrome) Migraines Osteopenia Pneumonia Situational depression UTI (urinary tract infection) Surgical History Surgical History H/O oophorectomy History of adenoidectomy 5 y/o History of appendectomy History of bladder surgery 1970 History of carpal tunnel surgery Bilateral History of hysterectomy History of nephrectomy lt side History of tonsillectomy 5 y/o Family History Family History Sibling Patient's sister is in good health Patient's brother is in good health Father Cerebrovascular accident Mother Family history of congestive heart failure Other Carcinoma of colon Diabetes mellitus Family history of heart disease in male family member before age 55 Social History Social History Smoking packs per day: 1 Smoking cigarettes per day: 20.0 Smoking status: Former smoker Tobacco type: cigarettes Smoking end date: 03/16/79 Alcohol intake: never 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al care concerns: No Anes - Eval Final PreProcedure Day of Procedure 11/05/20 13:27 Patient weight: normal Heart: regular rate and rhythm Lungs: clear to auscultation and normal air movement Airway: Mallampati scale class III Neurological: alert and oriented Last oral intake: >/= 8 hours ASA classification: III Emergent: no Anesthetic plan: proceed Anesthesia type and monitoring: general GIVS and standard monitoring Informed Consent: The patient's anesthetic plan and its attendant risks and benefits were discussed with the patient/family/POA. Questions were solicited and answers provided to the satisfaction of the patient/family/POA.
[2020-11-06 10:11] VITALS: BP 148/65; PULSE 69; RESP 14; TEMP 36.3; O2SAT 100
[2020-11-06] MEDS: LACTATED RINGERS 1,000 ML 150 ML IV CONT (10:25)
--- NOTE | 2020-11-06 10:37 | WPDGICN ---
Assessment and Plan Assessment and plan (1) Right sided abdominal pain: Code(s): R10.9 - Unspecified abdominal pain Status: Acute Assessment and Plan: Right-sided abdominal pain. Appears to be right lower quadrant. Cannot exclude incisional hernia. Plan is for colonoscopy. If this is not fruitful been surgical evaluation may need to be consider. Patient should try fiber type stool softeners in the interim. (2) Constipation: Code(s): K59.00 - Constipation, unspecified Status: Acute Assessment and Plan: Patient's constipation is improved. Would recommend continuing fiber supplementation. (3) GERD (gastroesophageal reflux disease): Code(s): K21.9 - Gastro-esophageal reflux disease without esophagitis Status: Acute Assessment and Plan: Patient with history of GE reflux currently appears stable. She has a history of esophageal stricture ring in the past not clinically evident at the present time. (4) Family history of colonic polyps: Code(s): Z83.71 - Family history of colonic polyps Status: Acute Assessment and Plan: Patient's sister has had colon polyps. A grandparent had colon cancer. Surveillance colonoscopy recommended at this time. GI Consult Note Consult date/time: 11/06/20 10:37 HPI: Bina Bowling is a 75 year old female Presents because of ongoing abdominal pain. Over the last 3-6 months has had right lower quadrant abdominal discomfort. Is very poorly described. Sometimes sharp. Sometimes burning. She states she sometimes feels a protrusion in this area. She does have a past medical history of renal cell carcinoma status post resection. Several years ago had an EGD for esophageal stricture. Most recent colonoscopy 2017. She is referred for colonoscopy because of her pain but also because of irregular bowel movements. Family history is significant her sister had a colon polyp grandmother had colon cancer. Patient previously had constipation but her bowel habits are much more regular now. Review of Systems Review of Systems: All systems reviewed & are unremarkable except as noted in HPI and below PMFSH Past Medical History Medical History (Updated 11/06/20 @ 10:40 by Chris Osborne MD) Arthritis Neck and spine Bladder cancer CAD (coronary artery disease) lt carotid Cancer of kidney Carpal tunnel syndrome Bilateral wrist Cataract Constipation Diverticulitis Endometriosis Esophageal stricture GERD (gastroesophageal reflux disease) Hepatitis 8 y/o Hip fracture lt History of kidney cancer lt side History of pneumonia as a child HLD (hyperlipidemia) HTN (hypertension) IBS (irritable bowel syndrome) Migraines Osteopenia Pneumonia Situational depression UTI (urinary tract infection) Surgical History Surgical History H/O oophorectomy History of adenoidectomy 5 y/o History of appendectomy History of bladder surgery 1970 History of carpal tunnel surgery Bilateral History of hysterectomy History of nephrectomy lt side History of tonsillectomy 5 y/o Family History Family History Sibling Patient's sister is in good health Patient's brother is in good health Father Cerebrovascular accident Mother Family history of congestive heart failure Other Carcinoma of colon Diabetes mellitus Family history of heart disease in male family member before age 55 Social History Social History Smoking packs per day: 1 Smoking cigarettes per day: 20.0 Smoking status: Former smoker Tobacco type: cigarettes Smoking end date: 03/16/79 Alcohol intake: never 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
[2020-11-06 11:45] VITALS: BP 85/48; PULSE 67; RESP 26; O2SAT 98
[2020-11-06 11:55] VITALS: BP 107/58; PULSE 74; RESP 22; O2SAT 98
[2020-11-06 12:05] VITALS: BP 143/73; PULSE 64; RESP 17; O2SAT 100
== END 2020-11-06 12:24 | disposition home or self-care (01) ==
PROVIDERS: PCP Physician Assistant; Visit Provider Internal Medicine Gastroenterology
PROC: 0DJD8ZZ Inspection of Lower Intestinal Tract, Via Natural or Artificial Opening Endoscopic (ICD-10-PCS; CPT 45378; principal; 2020-11-06 11:00)
DX: Z12.11 Encounter for screening for malignant neoplasm of colon (principal); Z83.71 Family history of colonic polyps; R10.31 Right lower quadrant pain; K64.8 Other hemorrhoids; K58.9 Irritable bowel syndrome, unspecified; K57.30 Diverticulosis of large intestine without perforation or abscess without bleeding; R10.9 Unspecified abdominal pain; K59.00 Constipation, unspecified; K21.9 Gastro-esophageal reflux disease without esophagitis; M47.812 Spondylosis without myelopathy or radiculopathy, cervical region; I25.10 Atherosclerotic heart disease of native coronary artery without angina pectoris; G56.03 Carpal tunnel syndrome, bilateral upper limbs; N80.9 Endometriosis, unspecified; E78.5 Hyperlipidemia, unspecified; I10 Essential (primary) hypertension; Z87.891 Personal history of nicotine dependence
CPT/HCPCS: G0105; J2001; J2704; J7120

== ENCOUNTER 2020-12-07 12:04 | Outpatient (CLI) | payer MEDICARE, SELFPAY ==
--- NOTE | ~2020-12-07 | MMUS_ITS ---
EXAMINATION: MM diagnostic azeem BI w conor, US breast BI complete HISTORY: Bilateral breast fullness. Mastodynia. TECHNIQUE: ML, MLO and craniocaudal 3-D tomosynthesis images of both breasts were performed and synth etic 2-D images were generated. CAD analysis was submitted and interpreted. High resolution breast ul trasound was performed. COMPARISON: 09/09/2019, 09/01/2018, 08/28/2017 bilateral digital screening mammogram examinations BREAST PARENCHYMAL COMPOSITION: The breasts are heterogeneously dense, which may obscure small masses . FINDINGS: MAMMOGRAPHIC FINDINGS: No suspicious mass or architectural distortion, malignant calcification, skin thickening or retractio n or significant new or developing density is detected. ULTRASOUND: There is no evidence of focal abnormal solid or cystic lesion or suspicious shadowing of either breas t. IMPRESSION: 1. No mammographic evidence of malignancy 2. Routine mammographic screening is recommended. BI-RADS Category 1: Negative Reviewed, dictated and finalized at location A. IMPRESSION: 1. No mammographic evidence of malignancy 2. Routine mammographic screening is recommended. BI-RADS Category 1: Negative
--- NOTE | ~2020-12-07 | CT_ITS ---
EXAMINATION: CT abdomen pelvis w con EXAM DATE: 12/07/2020 13:47 INDICATION: Right lower quadrant pain. Pelvic pain. Kidney and bladder cancer. TECHNIQUE: Spiral CT of the abdomen and pelvis was performed following intravenous injection of 100 m L Omnipaque 350. Axial, coronal and sagittal images of the abdomen and pelvis were reviewed. The do se-length product (DLP) for this examination was 230.11 mGy-cm. The exposure was tailored according to patient size (auto mA exposure control), and iterative reconstruction (ASIR) was used as additiona l dose reduction technique. Comparison is made to prior examination from 09/17/2020. FINDINGS: The liver, spleen, adrenal glands and pancreas are unremarkable. Gallbladder is unremarkab le. No biliary obstruction. Status post left-sided nephrectomy. No right-sided hydronephrosis. The uterus is anteverted and morphologically normal. The bladder is collapsed at time of imaging limit ing evaluation. There is no retroperitoneal or pelvic lymphadenopathy. There is moderate scattered arteriosclerotic disease. Tiny umbilical fat-containing hernia. There are no findings to suggest appendicitis. The stomach and small bowel are unremarkable. There is moderate amount of colonic stool. There is mild scattered colonic diverticulosis. There is no adj acent inflammatory change to suggest diverticulitis. No free intraperitoneal gas. The heart is nor mal in size. There are no pericardial or pleural effusions. The lung bases are unremarkable. There are no osteoblastic or osteolytic lesions identified. IMPRESSION: 1. Moderate colonic stool. 2. Left nephrectomy. No evidence metastatic disease. 3. Mild colonic diverticulosis. Reviewed, dictated and finalized at location B.
[2020-12-07 13:43] LABS: Estimated Glomerular Filt Rate 44
== END 2020-12-07 12:05 | disposition home or self-care (01) ==
PROVIDERS: PCP Physician Assistant; Visit Provider Physician Assistant
DX: N64.4 Mastodynia (principal); Z90.5 Acquired absence of kidney; K57.90 Diverticulosis of intestine, part unspecified, without perforation or abscess without bleeding
CPT/HCPCS: 74177; 76641; 77062; 77066; G0279; Q9967

== ENCOUNTER 2021-03-29 09:34 | Emergency (ER) | payer MEDICARE, SELFPAY ==
--- NOTE | ~2021-03-29 | CT_ITS ---
EXAMINATION: CTA chest PE protocol DATE: 03/29/2021 14:29 INDICATION: Palpitations. Elevated d-dimer. TECHNIQUE: Computed tomography (CT) pulmonary angiogram of the chest was performed with 100 mL Omnipa que-350 intravenous contrast. Additional 3D reconstructions utilizing coronal maximum intensity proje ction (MIP) were performed. Automated exposure control and iterative reconstruction technique were em ployed. The dose-length product was 166.07 mGy-cm. COMPARISON: None FINDINGS: Poor contrast opacification of the pulmonary arteries with the peak of the contrast bolus having pass ed through the pulmonary vasculature into the aorta. There is minimal streak artifact and only mild m otion artifact at the lung bases. Sensitivity is on the decrease in the segmental pulmonary arteries and assessment is essentially nondiagnostic in the more distal subsegmental pulmonary arteries due to primarily to the poor contrast opacification. No evident pulmonary embolism. Small region of consoli dation in the posterior segment of the left upper lobe abutting the major fissure suspicious for pneu monia. Mild biapical pleural-parenchymal scarring. Mild dependent atelectasis in the bilateral lower lobes. Multiple scattered bilateral small calcified pulmonary nodules along with calcified right amarilis r lymph nodes consistent with old granulomatous disease. Heart size is normal. No pericardial effusio n. Atherosclerotic coronary artery calcification. Thoracic aorta is normal in caliber with no dissect ion. No pathologically enlarged thoracic lymphadenopathy. Status post left nephrectomy. Mild thoracic spondylosis. IMPRESSION: 1. No evident pulmonary embolism. Sensitivity decreased in the segmental pulmonary arteries and essen tially nondiagnostic in the more peripheral subsegmental pulmonary arteries due to to suboptimal flaquita ng of the contrast bolus. 2. Focal small region of airspace disease at the posterior segment of the left upper lobe suspicious for pneumonia. Reviewed, dictated and finalized at location A. SLITTER IMPRESSION: 1. No evident pulmonary embolism. Sensitivity decreased in the segmental pulmon darin arteries and essentially nondiagnostic in the more peripheral subsegmental pulmonary arteries due to to suboptimal timing of the contrast bolus. 2. Focal small region of airspace disease at the posterior segment of the left upper lobe suspicious for pneumonia.
--- NOTE | ~2021-03-29 | XR_ITS ---
EXAMINATION: XR chest 2V DATE: 03/29/2021 09:56 INDICATION: Heart racing TECHNIQUE: frontal and lateral views of the chest were obtained. COMPARISON: Chest radiograph dated 07/16/2020 FINDINGS: Several small calcified nodules scattered throughout both lungs consistent with old granulomatous dis ease. No other airspace opacities, pulmonary edema, pleural effusion or pneumothorax. The cardiomedia stinal silhouette is normal. Moderate bilateral acromioclavicular osteoarthritis. Bones are otherwise unremarkable. IMPRESSION: 1. No acute cardiopulmonary disease. Reviewed, dictated and finalized at location A. MICS TEST ENGINEER
[2021-03-29 09:33] VITALS: BP 118/64; PULSE 90; RESP 19; TEMP 36.4; O2SAT 96
--- NOTE | 2021-03-29 09:38 | ECG_ITS ---
Measurements Intervals Jelm Rate: 82 P: 62 OK: 155 QRS: 12 QRSD: 74 T: 74 QT: 356 QTc: 417 Interpretive Statements SINUS RHYTHM BASELINE ARTIFACT- I, II, III, AVR, AVL, AVF, V4-V6 NORMAL ECG Electronically Signed On 03-29-2021 12:45:44 AUTOMATIC PINSETTER MECHANIC by Villa Lee D.O.
--- NOTE | 2021-03-29 09:51 | ED.ARRPALP ---
HPI - Arrhythmia/Palpitations General Chief Complaint: Arrhythmia/Palpitations Stated Complaint: Rapid HR Time Seen by Provider: 03/29/21 09:50 Source: patient Mode of arrival: EMS Limitations: no limitations History of Present Illness HPI narrative: Patient is a 76-year-old female complaining of palpitations that started this morning but now resolved. Patient states that her palpitations is worse when she stands up and ambulates. Patient states that she tested positive for COVID in March 16, 2021. Patient denies any chest pain, shortness of breath,,abdominal pain, nausea, vomiting, diaphoresis, fever or chills. Patient denies any history of A. fib or atrial flutter. Related Data Home Medications Medication Instructions Recorded Confirmed escitalopram oxalate [Lexapro] 10 mg PO DAILY 05/08/19 11/06/20 ezetimibe [Zetia] 10 mg PO DAILY 05/08/19 11/06/20 losartan 50 mg PO HS 05/08/19 11/06/20 aspirin [Aspir-81] 81 mg PO DAILY 07/16/20 03/29/21 Allergies Allergy/AdvReac Type Severity Reaction Status Date / Time azithromycin Allergy Unknown Unknown Verified 03/29/21 09:40 codeine Allergy Unknown Unknown Verified 03/29/21 09:40 hydrocodone AdvReac Severe CONFUSION Verified 03/29/21 09:40 amlodipine AdvReac Unknown Unknown to Verified 03/29/21 09:40 patient baclofen AdvReac Unknown CONFUSION Verified 03/29/21 09:40 lisinopril AdvReac Unknown X Verified 03/29/21 09:40 simvastatin AdvReac Unknown X Verified 03/29/21 09:40 Review of Systems Review of Systems: All systems reviewed & are unremarkable except as noted in HPI and below Constitutional: Constitutional: Denies body ache(s), Denies chills, Denies excessive sweating, Denies fatigue, Denies fever(s), Denies headache(s), Denies lethargy, Denies malaise, Denies weakness and Denies weight loss Eyes: Eyes: Denies blurry vision, Denies change in vision and Denies loss of vision ENT: Denies dizziness, Denies ear discharge, Denies headache(s), Denies lip swelling, Denies epistaxis, Denies nasal congestion, Denies neck pain, Denies throat swelling and Denies tongue swelling Cardiovascular: Cardiovascular: Denies chest pain, Denies chest pain at rest, Denies chest pain with activity, Denies diaphoresis, Denies rapid heart rate, Denies edema, Denies irregular heart rhythm and Denies lightheadedness Respiratory: Respiratory: Denies chest congestion, Denies cough and Denies hemoptysis Gastrointestinal: Gastrointestinal: Denies abdominal pain, Denies melena, Denies hematochezia, Denies diarrhea, Denies nausea, Denies vomiting and Denies hematemesis Musculoskeletal: Musculoskeletal: Denies abnormal gait, Denies deformity, Denies joint swelling, Denies limited range of motion, Denies neck pain and Denies numbness Neurologic: Denies Abnormal speech present, Denies abnormal gait, Denies confusion, Denies dizziness, Denies headache(s), Denies focal weakness, Denies loss of vision, Denies numbness, Denies Other visual disturbances, Denies Sensory deficit (Neuro) and Denies weakness Psychiatric: Psychiatric: Denies confusion, Denies depression, Denies auditory hallucinations, Denies homicidal ideation and Denies suicidal ideation Endocrine: Endocrine: Denies cold intolerance, Denies excessive sweating, Denies fatigue, Denies heat intolerance and Denies palpitations Hematologic/Lymphatic: Hematologic/Lymphatic: Denies easy bleeding and Denies easy bruising Allergic/Immunologic: Allergic/Immunologic: Denies lip swelling, Denies throat swelling and Denies tongue swelling PMFSH Past Medical History Medical History Arthritis Neck and spine Bladder cancer CAD (coronary artery disease) lt carotid Cancer of kidney Carpal tunnel syndrome Bilateral wrist Cataract Constipation Diverticulitis Endometriosis Esophageal stricture GERD (gastroesophageal reflux disease) Hepatitis 8 y/o Hip fracture lt History of kidney cancer lt side
[2021-03-29 10:02] LABS: Basophils Percent Auto 0.2 % (0.2-1.2); Eosinophils Percent Auto 0.6 % (0-4.4); Hematocrit 32.1 % (37.0-47.0); Hemoglobin 10.6 g/dL (12.0-15.0); Immature Granulocyte Absolute 0.02 K/mm3 (0.00-0.031); Immature Granulocyte Percent A 0.4 % (0-0.5); Lymphocytes Absolute Auto 1.07 K/mm3 (0.9-3.2); Lymphocytes Percent Auto 22.4 % (18.3-44.2); Mean Corpuscular Hemoglobin 31.5 pg (26-34); Mean Corpuscular Volume 95.3 fl (80-100); Mean Platelet Volume 9.4 fl (7.4-10.4); Monocytes Absolute Auto 0.6 K/mm3 (0.1-0.6); Monocytes Percent Auto 13.4 % (2.6-8.5); Platelet Count Result 259 k/mm3 (150-375); Red Blood Count 3.37 M/mm3 (4.2-5.4); Red Cell Distribution Width 13.2 % (11.5-14.5); White Blood Count 4.8 K/mm3 (4.5-10.0)
[2021-03-29 10:14] LABS: Prothrombin Time 12.9 Seconds (11.1-14.7)
[2021-03-29 10:16] LABS: Alanine Aminotransferase 16 U/L (4-35); Albumin Level 4.2 g/dL (3.5-5.1); Alkaline Phosphatase 95 U/L (38-126); Anion Gap 11 mmol/L (8-16); Aspartate Amino Transferase 29 U/L (14-36); Bilirubin,Total 0.4 mg/dL (0.2-1.3); Blood Urea Nitrogen 15 mg/dL (7-17); Calcium 8.9 mg/dL (8.4-10.2); Carbon Dioxide 26 mmol/L (22-30); Chloride 97 mmol/L (98-107); Estimated CRCL calculation 30 ml/min; Estimated Glomerular Filt Rate 48; Glucose 144 mg/dL (65-110); Lipase 113 U/L (23-300); Sodium 134 mmol/L (137-145)
[2021-03-29 10:21] VITALS: BP 118/52; PULSE 87; RESP 15; O2SAT 99
[2021-03-29 10:27] LABS: Troponin I < 0.012 ng/mL (0.000-0.034)
[2021-03-29] MEDS: LACTATED RINGERS 1,000 ML 999 ML IV CONT (10:54)
[2021-03-29 11:03] LABS: D Dimer 0.73 ug/mL (<0.48)
[2021-03-29 13:36] LABS: Troponin I < 0.012 ng/mL (0.000-0.034)
[2021-03-29] MEDS: LACTATED RINGERS 1,000 ML 500 ML IV CONT (15:19)
[2021-03-29 15:40] VITALS: BP 113/63; PULSE 70; RESP 18; TEMP 36.9; O2SAT 99
== END 2021-03-29 15:40 | disposition home or self-care (01) ==
PROVIDERS: Emergency Provider Emergency Medicine; PCP Physician Assistant
DX: U07.1 COVID-19 (principal); J12.82 Pneumonia due to coronavirus disease 2019; R00.2 Palpitations; I25.10 Atherosclerotic heart disease of native coronary artery without angina pectoris; K21.9 Gastro-esophageal reflux disease without esophagitis; E78.5 Hyperlipidemia, unspecified; I10 Essential (primary) hypertension; K58.9 Irritable bowel syndrome, unspecified; M85.80 Other specified disorders of bone density and structure, unspecified site; Z85.51 Personal history of malignant neoplasm of bladder; Z85.528 Personal history of other malignant neoplasm of kidney; Z86.19 Personal history of other infectious and parasitic diseases; Z87.440 Personal history of urinary (tract) infections; M47.812 Spondylosis without myelopathy or radiculopathy, cervical region; Z90.5 Acquired absence of kidney; Z87.891 Personal history of nicotine dependence
CPT/HCPCS: 36415; 71046; 71275; 80053; 83690; 84484; 85025; 85380; 85610; 85730; 93005; 96360; 96361; 99284; J7120; Q9967

== ENCOUNTER 2021-07-27 20:23 | Emergency (ER) | payer MEDICARE, SELFPAY ==
--- NOTE | ~2021-07-27 | XR_ITS ---
XR chest 2V DATE: 07/27/2021 22:26 INDICATION: Productive cough. Midsternal chest pain for 2 weeks. TECHNIQUE: PA and lateral views COMPARISON: 03/29/2021 CT pulmonary scan 03/29/2021 2 view chest FINDINGS: Normal heart size. Aortic calcification and mild unfolding. No hilar or mediastinal enlarge ment. Bilateral hyperinflation with relative flattening of the diaphragm. No pulmonary infiltrate or consol idation, pleural effusion or pulmonary vascular congestion or pneumothorax. There is dextroscoliosis of the thoracolumbar spine. There is osteopenia. IMPRESSION: Bilateral hyperinflation, consistent with obstructive airways disease No active cardiopulmonary disease Aortic calcification Reviewed, dictated and finalized at location A. IMPRESSION: Bilateral hyperinflation, consistent with obstructive airways disea se No active cardiopulmonary disease Aortic calcification
[2021-07-27 20:44] VITALS: BP 125/60; PULSE 84; RESP 18; TEMP 36.7; O2SAT 99
[2021-07-27 23:48] LABS: Basophils Percent Auto 0.3 % (0.2-1.2); Eosinophils Absolute Auto 0.3 K/mm3 (0-0.3); Eosinophils Percent Auto 4.2 % (0-4.4); Hematocrit 27.3 % (37.0-47.0); Hemoglobin 8.7 g/dL (12.0-15.0); Immature Granulocyte Absolute 0.03 K/mm3 (0.00-0.031); Immature Granulocyte Percent A 0.4 % (0-0.5); Lymphocytes Absolute Auto 1.76 K/mm3 (0.9-3.2); Lymphocytes Percent Auto 23.2 % (18.3-44.2); Mean Corpuscular HGB Conc 31.9 g/dl (32-36); Mean Corpuscular Hemoglobin 30.4 pg (26-34); Mean Corpuscular Volume 95.5 fl (80-100); Mean Platelet Volume 9.4 fl (7.4-10.4); Monocytes Absolute Auto 1.1 K/mm3 (0.1-0.6); Neutrophils Absolute Auto 4.3 K/mm3 (1.3-6.7); Neutrophils Percent Auto 56.9 % (45.5-73.1); Platelet Count Result 230 k/mm3 (150-375); Red Blood Count 2.86 M/mm3 (4.2-5.4); Red Cell Distribution Width 13.9 % (11.5-14.5); White Blood Count 7.6 K/mm3 (4.5-10.0)
[2021-07-27 23:49] LABS: Appearance Urine Clear (Clear); Bilirubin Urine Negative (Negative); Color Urine Yellow (Yellow); Glucose Urine UA Negative (Negative); Ketones Urine Negative (Negative); Leukocyte Esterase Ur Trace LEU/UL (Negative); Nitrate Urine Negative (Negative); Protein Urine Negative (Negative); Urobilinogen Urine 0.2 mg/dL (<2.0)
[2021-07-27 23:50] LABS: Add Urine Microscopic? YES; Blood Urine Trace (Negative)
[2021-07-27 23:59] LABS: Alanine Aminotransferase 17 U/L (6-35); Albumin Level 3.9 g/dL (3.5-5.1); Alkaline Phosphatase 74 U/L (38-126); Anion Gap 6 mmol/L (8-16); Aspartate Amino Transferase 30 U/L (14-36); Bilirubin,Total 0.5 mg/dL (0.2-1.3); Blood Urea Nitrogen 16 mg/dL (7-17); Calcium 8.5 mg/dL (8.4-10.2); Carbon Dioxide 26 mmol/L (22-30); Chloride 98 mmol/L (98-107); Estimated CRCL calculation 32 ml/min; Estimated Glomerular Filt Rate 54; Glucose 91 mg/dL (65-110); Potassium 3.9 mmol/L (3.4-5.0); Sodium 130 mmol/L (137-145)
[2021-07-28 00:04] LABS: Mucus Urine Rare /lpf; RBC Urine 0-2 /hpf (0-2); Squamous Epithelial Cell Urine Rare /hpf (Few)
[2021-07-28 00:11] VITALS: PULSE 76; RESP 18; O2SAT 98
[2021-07-28] MEDS: ALBUTEROL SULFATE NEB 2.5 MG/3 ML INH INHALATION (00:38)
[2021-07-28 00:40] VITALS: PULSE 91; RESP 20
[2021-07-28 00:46] VITALS: PULSE 89; RESP 20
[2021-07-28] MEDS: BENZONATATE 100 MG CAPSULE 200 MG PO (01:38)
[2021-07-28 01:45] VITALS: O2SAT 98
--- NOTE | 2021-07-28 02:38 | ED.URI ---
HPI - URI/Sore Throat General Chief Complaint: Upper Respiratory Infection Stated Complaint: cough, congestion Time Seen by Provider: 07/27/21 22:33 Source: patient Mode of arrival: ambulatory History of Present Illness HPI Narrative: 76-year-old female presents today with complaints of cough that has been going on for over a week. Patient states primary told her to come to the ER for x-ray and lab work. Patient seen at urgent care last Thursday for cough. They did a chest x-ray showed nothing significant. Patient states at that time she was running a fever but only intervention was chest x-ray. Patient currently afebrile, heart rate 84, BP 125/60, temp 36.7 ?C and oxygen level 99% on room air. Related Data Home Medications Medication Instructions Recorded Confirmed escitalopram oxalate [Lexapro] 10 mg PO DAILY 05/08/19 11/06/20 ezetimibe [Zetia] 10 mg PO DAILY 05/08/19 11/06/20 losartan 50 mg PO HS 05/08/19 11/06/20 aspirin [Aspir-81] 81 mg PO DAILY 07/16/20 03/29/21 Allergies Allergy/AdvReac Type Severity Reaction Status Date / Time azithromycin Allergy Unknown Unknown Verified 03/29/21 09:40 codeine Allergy Unknown Unknown Verified 03/29/21 09:40 hydrocodone AdvReac Severe CONFUSION Verified 03/29/21 09:40 amlodipine AdvReac Unknown Unknown to Verified 03/29/21 09:40 patient baclofen AdvReac Unknown CONFUSION Verified 03/29/21 09:40 lisinopril AdvReac Unknown X Verified 03/29/21 09:40 simvastatin AdvReac Unknown X Verified 03/29/21 09:40 Review of Systems Review of Systems: CONSTITUTIONAL: Denies fever, chills, or sweats. EYES: Denies visual changes, redness, or discharge. ENT: Denies rhinorrhea, congestion, sore throat, or otalgia. CARDIOVASCULAR: Denies chest pain, palpitations, or edema. RESPIRATORY: Cough. Denies or dyspnea. GASTROINTESTINAL: Denies abdominal pain, nausea, vomiting, or diarrhea. GENITOURINARY: Denies dysuria or hematuria. SKIN: Denies rash or itching. MUSCULOSKELETAL: Denies back pain, joint pain, or myalgia. NEUROLOGIC: Denies headache, numbness, dizziness, or weakness. PSYCHIATRIC: Denies anxiety or depression. FOR[facility], LATER [facility] Past Medical History Medical History Arthritis Neck and spine Bladder cancer CAD (coronary artery disease) lt carotid Cancer of kidney Carpal tunnel syndrome Bilateral wrist Cataract Constipation Diverticulitis Endometriosis Esophageal stricture GERD (gastroesophageal reflux disease) Hepatitis 8 y/o Hip fracture lt History of kidney cancer lt side History of pneumonia as a child HLD (hyperlipidemia) HTN (hypertension) IBS (irritable bowel syndrome) Migraines Osteopenia Pneumonia Situational depression UTI (urinary tract infection) Surgical History Surgical History H/O oophorectomy History of adenoidectomy 5 y/o History of appendectomy History of bladder surgery 1970 History of carpal tunnel surgery Bilateral History of hysterectomy History of nephrectomy lt side History of tonsillectomy 5 y/o Family History Family History Sibling Patient's sister is in good health Patient's brother is in good health Father Cerebrovascular accident Mother Family history of congestive heart failure Other Carcinoma of colon Diabetes mellitus Family history of heart disease in male family member before age 55 Social History Social History Smoking packs per day: 1 Smoking cigarettes per day: 20.0 Smoking status: Former smoker Tobacco type: cigarettes Smoking end date: 03/16/79 Alcohol intake: never 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
== END 2021-07-28 01:45 | disposition home or self-care (01) ==
PROVIDERS: Emergency Provider Nurse Practitioner Family; PCP Physician Assistant
DX: R05.9 Cough, unspecified (principal); I25.10 Atherosclerotic heart disease of native coronary artery without angina pectoris; E78.5 Hyperlipidemia, unspecified; I10 Essential (primary) hypertension; K21.9 Gastro-esophageal reflux disease without esophagitis; K58.9 Irritable bowel syndrome, unspecified; M85.80 Other specified disorders of bone density and structure, unspecified site; M47.812 Spondylosis without myelopathy or radiculopathy, cervical region; Z85.528 Personal history of other malignant neoplasm of kidney; Z85.51 Personal history of malignant neoplasm of bladder; Z87.01 Personal history of pneumonia (recurrent); Z87.440 Personal history of urinary (tract) infections; Z90.5 Acquired absence of kidney; Z87.891 Personal history of nicotine dependence; R91.8 Other nonspecific abnormal finding of lung field
CPT/HCPCS: 36415; 71046; 80053; 81001; 85025; 94640; 99283; A9270

== ENCOUNTER 2021-08-05 20:28 | Emergency (ER) | payer MEDICARE, SELFPAY ==
--- NOTE | ~2021-08-05 | XR_ITS ---
EXAMINATION: XR chest 2V Exam Date/Time: 08/05/2021 21:00 CDT HISTORY: COUGH Comparison: 03/29/2001. RESULT: Lines, tubes, and devices: None. Lungs and pleura: Senescent and possibly emphysematous changes, biapical pleural scarring, otherwise clear. Cardiomediastinal silhouette: Stable cardiomediastinal silhouette. Other: No acute osseous or upper abdominal finding. IMPRESSION: No acute cardiopulmonary process. Reviewed, dictated and finalized at location K.
[2021-08-05 20:40] VITALS: BP 160/66; PULSE 87; RESP 16; TEMP 36.6; O2SAT 100
[2021-08-05 20:58] VITALS: O2SAT 100
[2021-08-05 21:00] VITALS: BP 154/54; PULSE 79; RESP 18; O2SAT 100
--- NOTE | 2021-08-05 21:26 | ED.URI ---
HPI - URI/Sore Throat General Chief Complaint: Upper Respiratory Infection Stated Complaint: cough Time Seen by Provider: 08/05/21 20:57 Source: patient Mode of arrival: ambulatory Limitations: no limitations History of Present Illness HPI Narrative: Patient is a 76-year-old female complaining of cough, productive, white-yellowish sputum, started 2 weeks ago. Patient also states that she has no energy and feels weak for the past week. Patient states that she saw her PCP last week for the cough was given antibiotics. Patient called her PCP today and since she is not better after the antibiotics was advised to go to the emergency room. Patient denies any chest pain, shortness of breath, abdominal pain, nausea, vomiting, fever or chills. Related Data Home Medications Medication Instructions Recorded Confirmed escitalopram oxalate [Lexapro] 10 mg PO DAILY 05/08/19 11/06/20 ezetimibe [Zetia] 10 mg PO DAILY 05/08/19 11/06/20 losartan 50 mg PO HS 05/08/19 11/06/20 aspirin [Aspir-81] 81 mg PO DAILY 07/16/20 03/29/21 Allergies Allergy/AdvReac Type Severity Reaction Status Date / Time azithromycin Allergy Unknown Unknown Verified 08/05/21 20:43 codeine Allergy Unknown Unknown Verified 08/05/21 20:43 hydrocodone AdvReac Severe CONFUSION Verified 08/05/21 20:43 amlodipine AdvReac Unknown Unknown to Verified 08/05/21 20:43 patient baclofen AdvReac Unknown CONFUSION Verified 08/05/21 20:43 lisinopril AdvReac Unknown X Verified 08/05/21 20:43 simvastatin AdvReac Unknown X Verified 08/05/21 20:43 Review of Systems Review of Systems: All systems reviewed & are unremarkable except as noted in HPI and below Constitutional: Constitutional: Denies body ache(s), Denies chills, Denies excessive sweating, Denies fatigue, Denies fever(s), Denies headache(s), Denies lethargy, Denies malaise, Denies weakness and Denies weight loss Eyes: Eyes: Denies blurry vision, Denies change in vision and Denies loss of vision ENT: Denies dizziness, Denies ear discharge, Denies headache(s), Denies lip swelling, Denies epistaxis, Denies nasal congestion, Denies neck pain, Denies throat swelling and Denies tongue swelling Cardiovascular: Cardiovascular: Denies chest pain, Denies chest pain at rest, Denies chest pain with activity, Denies diaphoresis, Denies rapid heart rate, Denies edema, Denies irregular heart rhythm, Denies lightheadedness, Denies palpitations, Denies dyspnea and Denies dyspnea on exertion Respiratory: Respiratory: Denies chest congestion, Denies hemoptysis, Denies dyspnea and Denies dyspnea on exertion Gastrointestinal: Gastrointestinal: Denies abdominal pain, Denies melena, Denies hematochezia, Denies diarrhea, Denies nausea, Denies vomiting and Denies hematemesis Musculoskeletal: Musculoskeletal: Denies abnormal gait, Denies deformity, Denies joint swelling, Denies limited range of motion, Denies neck pain and Denies numbness Neurologic: Denies Abnormal speech present, Denies abnormal gait, Denies confusion, Denies dizziness, Denies headache(s), Denies focal weakness, Denies loss of vision, Denies numbness, Denies Other visual disturbances, Denies Sensory deficit (Neuro) and Denies weakness Psychiatric: Psychiatric: Denies confusion, Denies depression, Denies auditory hallucinations, Denies homicidal ideation and Denies suicidal ideation Endocrine: Endocrine: Denies cold intolerance, Denies excessive sweating, Denies fatigue, Denies heat intolerance and Denies palpitations Hematologic/Lymphatic: Hematologic/Lymphatic: Denies easy bleeding and Denies easy bruising Allergic/Immunologic: Allergic/Immunologic: Denies lip swelling, Denies throat swelling and Denies tongue swelling PMFSH Past Medical History Medical History Arthritis Neck and spine Bladder cancer CAD (coronary artery disease) lt carotid Cancer of kidney Carpal tunnel syndrome Bilateral wrist Cataract Constipation
[2021-08-05 21:27] LABS: Basophils Percent Auto 0.3 % (0.2-1.2); Eosinophils Absolute Auto 0.3 K/mm3 (0-0.3); Eosinophils Percent Auto 2.2 % (0-4.4); Hematocrit 27.2 % (37.0-47.0); Hemoglobin 8.6 g/dL (12.0-15.0); Immature Granulocyte Absolute 0.04 K/mm3 (0.00-0.031); Immature Granulocyte Percent A 0.3 % (0-0.5); Lymphocytes Absolute Auto 1.47 K/mm3 (0.9-3.2); Lymphocytes Percent Auto 12.7 % (18.3-44.2); Mean Corpuscular HGB Conc 31.6 g/dl (32-36); Mean Corpuscular Hemoglobin 30.1 pg (26-34); Mean Corpuscular Volume 95.1 fl (80-100); Mean Platelet Volume 8.9 fl (7.4-10.4); Monocytes Absolute Auto 1.1 K/mm3 (0.1-0.6); Monocytes Percent Auto 9.3 % (2.6-8.5); Neutrophils Absolute Auto 8.7 K/mm3 (1.3-6.7); Neutrophils Percent Auto 75.2 % (45.5-73.1); Platelet Count Result 359 k/mm3 (150-375); Red Blood Count 2.86 M/mm3 (4.2-5.4); Red Cell Distribution Width 13.6 % (11.5-14.5); White Blood Count 11.6 K/mm3 (4.5-10.0)
[2021-08-05 21:36] LABS: Anion Gap 5 mmol/L (8-16); Blood Urea Nitrogen 16 mg/dL (7-17); Calcium 8.4 mg/dL (8.4-10.2); Carbon Dioxide 26 mmol/L (22-30); Chloride 100 mmol/L (98-107); Estimated Glomerular Filt Rate > 60; Glucose 103 mg/dL (65-110); Potassium 4.3 mmol/L (3.4-5.0); Sodium 131 mmol/L (137-145)
[2021-08-05 23:04] VITALS: BP 176/56; PULSE 100; RESP 18; O2SAT 100
== END 2021-08-05 23:03 | disposition home or self-care (01) ==
PROVIDERS: Emergency Provider Emergency Medicine; PCP Physician Assistant
DX: J40 Bronchitis, not specified as acute or chronic (principal); D64.9 Anemia, unspecified; I25.10 Atherosclerotic heart disease of native coronary artery without angina pectoris; E78.5 Hyperlipidemia, unspecified; I10 Essential (primary) hypertension; K21.9 Gastro-esophageal reflux disease without esophagitis; K58.9 Irritable bowel syndrome, unspecified; M85.80 Other specified disorders of bone density and structure, unspecified site; M47.812 Spondylosis without myelopathy or radiculopathy, cervical region; Z85.528 Personal history of other malignant neoplasm of kidney; Z85.51 Personal history of malignant neoplasm of bladder; Z87.01 Personal history of pneumonia (recurrent); Z87.440 Personal history of urinary (tract) infections; Z90.5 Acquired absence of kidney; Z87.891 Personal history of nicotine dependence; Z79.82 Long term (current) use of aspirin
CPT/HCPCS: 36415; 71046; 80048; 85025; 99283

== ENCOUNTER 2021-12-06 12:30 | Emergency (ER) | payer MEDICARE, SELFPAY ==
--- NOTE | ~2021-12-06 | XR_ITS ---
XR tibia fibula LT 2V 12/06/2021 13:43 INDICATION: Left leg pain PROCEDURE: 2 views left tibia/fibula COMPARISON: 12/06/2021 FINDINGS: Fracture, dislocation or subluxation is not identified. The soft tissues appear within norm al limits. No foreign bodies are identified. IMPRESSION: 1: NO ACUTE BONE OR JOINT ABNORMALITY IDENTIFIED. Reviewed, dictated and finalized at location A.
--- NOTE | ~2021-12-06 | XR_ITS ---
XR hip LT 2V w AP pelvis 12/06/2021 13:47 Indication: Left leg and hip pain Procedure: 3 views left hip including AP pelvis Comparison: No prior studies for comparison. Findings: Pelvic rings are intact. Mild osteoarthritis of the hips. Mild lumbar spondylosis. No acute fracture or traumatic malalignment. Impression: 1: No acute fracture. Reviewed, dictated and finalized at location A. Impression: 1: No acute fracture.
--- NOTE | ~2021-12-06 | XR_ITS ---
XR knee LT min 4V DATE: 12/06/2021 13:43 INDICATION: Fall one week ago. Generalized pain above-knee and left lower leg TECHNIQUE: [place], crosstable lateral, AP and oblique views COMPARISON: None FINDINGS: No fracture or dislocation or joint effusion, radiopaque intra-articular loose body or, emir cinosis. Knee joint spaces are relatively preserved. IMPRESSION: No significant abnormality Reviewed, dictated and finalized at location B. IMPRESSION: No significant abnormality
[2021-12-06 13:09] VITALS: BP 139/55; PULSE 78; RESP 14; TEMP 36.4; O2SAT 100
--- NOTE | 2021-12-06 13:32 | ED.LOWEXIN ---
HPI - Extremity Injury (Lower) General Chief Complaint: Extremity Injury, Lower Stated Complaint: fall 1 wk ago, left knee pain Time Seen by Provider: 12/06/21 13:17 History of Present Illness HPI Narrative: Patient is a 76-year-old female with a history of osteopenia here for evaluation of left leg pain x 2 weeks. She states that the pain began 2 weeks ago after a fall. She was taking out her trash cans, slipped on her flip flop and fell, landing on her left side. No head injury or loss of consciousness. She has been walking but states it is painful. The pain is present from the left hip to the left tibia/fibula. No ankle pain. Has been attempting Tylenol with mild relief of her pain. No numbness, tingling, fevers, chills, weakness in the leg. Denies any back pain, saddle anesthesia, incontinence or retention of bowel or bladder Related Data Home Medications Medication Instructions Recorded Confirmed escitalopram oxalate 10 mg tablet 10 mg PO DAILY 05/08/19 11/06/20 (Lexapro) ezetimibe 10 mg tablet (Zetia) 10 mg PO DAILY 05/08/19 11/06/20 losartan 25 mg tablet 50 mg PO HS 05/08/19 11/06/20 aspirin 81 mg tablet,delayed 81 mg PO DAILY 07/16/20 03/29/21 release Allergies Allergy/AdvReac Type Severity Reaction Status Date / Time azithromycin Allergy Unknown Unknown Verified 08/05/21 20:43 codeine Allergy Unknown Unknown Verified 08/05/21 20:43 hydrocodone AdvReac Severe CONFUSION Verified 08/05/21 20:43 amlodipine AdvReac Unknown Unknown to Verified 08/05/21 20:43 patient baclofen AdvReac Unknown CONFUSION Verified 08/05/21 20:43 lisinopril AdvReac Unknown X Verified 08/05/21 20:43 simvastatin AdvReac Unknown X Verified 08/05/21 20:43 Review of Systems Review of Systems: Gen: Denies fevers or chills Eyes: Denies eye pain or visual change ENT: Denies congestion Respiratory: Denies shortness of breath or cough CV: Denies chest pain or palpitations GI: Denies abdominal pain nausea, emesis or diarrhea : denies burning, urgency, frequency or hematuria Musculoskeletal: Reports left leg pain. Neuro: Denies numbness, tingling, weakness or focal weakness Skin: Denies rash Except as documented, all other systems reviewed and negative [facility] Past Medical History Medical History Arthritis Neck and spine Bladder cancer CAD (coronary artery disease) lt carotid Cancer of kidney Carpal tunnel syndrome Bilateral wrist Cataract Constipation Diverticulitis Endometriosis Esophageal stricture GERD (gastroesophageal reflux disease) Hepatitis 8 y/o Hip fracture lt History of kidney cancer lt side History of pneumonia as a child HLD (hyperlipidemia) HTN (hypertension) IBS (irritable bowel syndrome) Migraines Osteopenia Pneumonia Situational depression UTI (urinary tract infection) Surgical History Surgical History H/O oophorectomy History of adenoidectomy 5 y/o History of appendectomy History of bladder surgery 1970 History of carpal tunnel surgery Bilateral History of hysterectomy History of nephrectomy lt side History of tonsillectomy 5 y/o Family History Family History Sibling Patient's sister is in good health Patient's brother is in good health Father Cerebrovascular accident Mother Family history of congestive heart failure Other Carcinoma of colon Diabetes mellitus Family history of heart disease in male family member before age 55 Social History Social History Smoking packs per day: 1 Smoking cigarettes per day: 20.0 Smoking status: Former smoker Tobacco type: cigarettes Smoking end date: 03/16/79 Alcohol intake: never 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
== END 2021-12-06 14:17 | disposition home or self-care (01) ==
PROVIDERS: Emergency Provider Emergency Medicine; PCP Physician Assistant
DX: M79.605 Pain in left leg (principal); I25.10 Atherosclerotic heart disease of native coronary artery without angina pectoris; E78.5 Hyperlipidemia, unspecified; I10 Essential (primary) hypertension; N80.9 Endometriosis, unspecified; K21.9 Gastro-esophageal reflux disease without esophagitis; M85.80 Other specified disorders of bone density and structure, unspecified site; Z87.891 Personal history of nicotine dependence; Z90.710 Acquired absence of both cervix and uterus; Z90.5 Acquired absence of kidney; Z85.528 Personal history of other malignant neoplasm of kidney; Z87.01 Personal history of pneumonia (recurrent); Z87.440 Personal history of urinary (tract) infections; Z85.51 Personal history of malignant neoplasm of bladder; Z79.82 Long term (current) use of aspirin; W01.0XXA Fall on same level from slipping, tripping and stumbling without subsequent striking against object, initial encounter
CPT/HCPCS: 73502; 73564; 73590; 99284

== ENCOUNTER 2022-01-16 12:35 | Outpatient (CLI) | payer MEDICARE, SELFPAY ==
--- NOTE | ~2022-01-16 | DEXA_ITS ---
Bone Density Report Name: RASHAD DON Age: 76 Sex: Female Ethnicity: White Date of : 1945 Indication: osteopenia; parental hip fracture; height loss; cancer; postmenopausal Referring Provider: LINDA, ANDRZEJ Study: Bone densitometry was performed. Exam Date: January 16, 2022 Accession number: [id number] Bone Density: Region BMD T-score Z-score Classification AP Spine(L1, L2, L3) 0.847 -1.6 1.0 Osteopenia Femoral Neck (Left) 0.594 -2.3 0.0 Osteopenia Total Hip (Left) 0.730 -1.7 0.3 Osteopenia Femoral Neck (Right) 0.561 -2.6 -0.3 Osteoporosis Total Hip (Right) 0.713 -1.9 0.1 Osteopenia Total Hip Mean 0.722 -1.8 0.2 Osteopenia World Health Organization criteria for BMD impression classify patients as: Normal (T-score at or above -1.0), Osteopenia (T-score between -1.0 and -2.5), or Osteoporosis (T-score at or below -2.5). 10-year Fracture Risk: FRAX not reported because: Some T-score for Spine Total or Hip Total or Femoral Neck at or below -2.5 Previous Exams: Region Exam Age BMD T-score BMD Change BMD Change Date g/cm2 vs Baseline vs Previous AP Spine (L1-L3) 01/16/2022 76 0.847 -1.6 0.011 (1.3%) 0.011 (1.3%) 10/05/2019 74 0.836 -1.7 Total Hip(Left) 01/16/2022 76 0.730 -1.7 -0.014 (-1.9%) -0.014 (-1.9%) 10/05/2019 74 0.745 -1.6 Total Hip(Right) 01/16/2022 76 0.713 -1.9 -0.028 (-3.7%) -0.028 (-3.7%) 10/05/2019 74 0.740 -1.7 *Denotes significance at 95% confidence level, LSC for AP Spine = 0.022 g/cm2, LSC for Total Hip = 0.027 g/cm2 Clinical Information Provided by Patient: Parent has had a hip fracture Has used the following medications: Vitamin D, Calcium Has the following medical conditions: Cancer Patient maximum height was 62 Menopause Age: 53 No regular weight bearing exercise Onset of menses at age 10 Number of children 3 Impression: The patient has osteoporosis, based on the Right Femoral Neck T-score. The patient has risk factors, including: parental hip fracture. The BMD for the Total Hip(Right) decreased, changing by -3.7% since the last DXA exam. Discussion: INCREASED RISK OF FRACTURE. BONE DENSITY IS UNDESIRABLY LOW AT ONE OR MORE SKELETAL SITES, CONSISTENT WITH POSTMENOPAUSAL OSTEOPOROSIS. This patient's lowest T-score meets the World Health Organization's (WHO) criteria for osteoporosis at one or more sites (T-score -2.5 or below). In untreated patients, the risk of osteoporotic
== END 2022-01-16 12:36 | disposition home or self-care (01) ==
PROVIDERS: PCP Physician Assistant; Visit Provider Physician Assistant
DX: Z78.0 Asymptomatic menopausal state (principal); M85.89 Other specified disorders of bone density and structure, multiple sites; M81.0 Age-related osteoporosis without current pathological fracture
CPT/HCPCS: 77080